=== PATIENT | male | born 1950 | race Caucasian/White ===

== ENCOUNTER 2018-12-22 00:32 | Emergency (ER) | payer OTHER, SELFPAY ==
[2018-12-22 00:36] VITALS: BP 136/77; PULSE 69; RESP 18; TEMP 36.3; O2SAT 98; BMI 29.0
--- NOTE | 2018-12-22 01:42 | ED_ITS ---
HPI - Fall General Chief Complaint: Fall Stated Complaint: fell on ice, thinks he broke rib back/chest pain Time Seen by Provider: 12/22/18 01:42 Source: patient Mode of arrival: ambulatory Limitations: no limitations History of Present Illness HPI Narrative: The patient slipped on his driveway about 1.5 days ago. He has snow in the yard, but black ice in the driveway. He fell backwards landing on his back, shoulders and his head but feels there is no serious injuryto his head. There was no ongoing head zzzpain or LOC. The back is improved also, however he has lower anterior rib pain. He has pain with breathing or motion at the same site. He has no dyspnea. He denies hemoptysis. There is no abdominal pain or nausea vomiting. There is no obvious injury to the anterior chest. Related Data Previous Rx's Medication Instructions Recorded tramadol 50 mg PO Q6H PRN #15 tab 12/22/18 Allergies Allergy/AdvReac Type Severity Reaction Status Date / Time No Known Drug Allergies Allergy Verified 12/22/18 00:41 Review of Systems Review of Systems ROS Unobtainable: All systems reviewed & are unremarkable except as noted in HPI and below Constitutional Denies fever(s), Denies lethargy, Denies weakness and Reports other (No recent illness.) Eyes Denies change in vision ENT Ears, Nose, Mouth, and Throat: Denies neck pain and Reports other (No head or neck pain) Cardiovascular Reports as per HPI, Reports chest pain, Denies irregular heart rhythm, Denies lightheadedness and Denies palpitations Respiratory Denies chest congestion, Denies cough and Denies hemoptysis Gastrointestinal Gastrointestinal: Denies abdominal pain, Denies nausea and Denies vomiting Musculoskeletal Denies back pain, Denies neck pain and Denies numbness Integumentary/Breasts Denies erythema, Denies rash and Denies wounds Neurologic Denies numbness and Denies weakness Endocrine Denies palpitations Exam Initial Vital Signs Initial Vital Signs: Vital Signs Temperature 97.3 F L 12/22/18 00:36 Pulse Rate 69 12/22/18 00:36 Respiratory Rate 18 12/22/18 00:36 Blood Pressure 136/77 12/22/18 00:36 Pulse Oximetry 98 12/22/18 00:36 Const General: cooperative and well developed Nutritional Appearance: well nourished Orientation: alert, awake, oriented x3 and not confused [facility] Head: normocephalic and atraumatic Face and sinus: face symmetric Mouth: oral mucosae normal and moist mucous membranes Throat: posterior oropharynx normal, tonsils normal and uvula midline Eyes General: appearance normal, both eyes and all related structures Eyelids: eyelids normal Conjunctivae: conjunctivae normal Sclera: sclerae normal Pupils: PERRL EOM: EOM intact bilaterally Neck Neck: No tender Chest Other: Focal tenderness along the right side of the lower sternal border. No palpable defects. No crepitus. Resp Effort & Inspection: normal respiratory effort, able to speak in complete sentences, no respiratory distress and no use of accessory muscles Auscultation: clear to auscultation bilaterally, no rales, no rhonchi and no wheezes Cardio Rate: regular rate Rhythm: regular rhythm Heart Sounds: S1 normal, S2 normal, no click, no gallops, no murmurs and no rubs Pulses: normal peripheral pulses GI Inspection: non-distended Palpation: soft, no hepatosplenomegaly, No guarding and No tender Auscultation: normal bowel sounds Skin General: no rashes or lesions noted, No jaundice and No petechiae Neuro General: alert, oriented x3, gait normal and no focal motor deficits Speech: speech normal Extrem General: full ROM and other (No obvious tenderness or injury) PFSH Medical History No chronic problems (Acute) Surgical History No history of previous surgery (Acute) Social History Smoking Status: Never smoker Social History Smoking Status: Never smoker Course Orders Ordered: ED Orders 12/22/18 01:47 XR ribs BI min 4V w CXR1V Stat Discontinued Medications Tramadol HCl (Ultram 50mg Prepack) 1 bottle MISC SEEINSTR ONE Stop: 12/22/18 03:40 Last Admin: 12/22/18 03:50 Dose: 1 bottle Vital Signs - 8 hr 12/22/18 00:36 12/22/18 02:34 12/22/18 03:39 Temperature 97.3 F L Pulse Rate 69 53 L 59 L Respiratory Rate 18 16 Blood Pressure 136/77 Blood Pressure [Left Arm] 119/61 128/65 Pulse Oximetry 98 97 96 MDM - Fall Imaging Data Chest x-ray: My impression: No evidence of rib fracture. Lungs are intact. No obvious trauma. Discharge Plan Departure Patient Disposition: Home Clinical Impression: Sprain of chest wall Qualifiers: Encounter type: initial encounter Qualified Code(s): S23.8XXA - Sprain of other specified parts of thorax, initial encounter Instructions: DI for Rib Contusion Activity Restrictions/Additional Instructions: Increased serum activity as tolerated. Expect discomfort for the next 2-4 weeks. Take Tylenol or Advil as needed for pain. Take Tramadol every 6hr as needed for added pain control. Recheck review doctor in 3-4 weeks if not improving. Return here if obviously worse. Prescriptions: New tramadol 50 mg tablet 50 mg PO Q6H PRN (Reason: pain) Qty: 15 RF: 0 Referrals: Alma Delia Tran PA-C [Primary Care Provider] -
--- NOTE | 2018-12-22 01:47 | DI.RAD.S_ITS ---
PROCEDURE: XR RIBS BI MIN 4V W CXR1V INDICATIONS: Fell onto pavement. TECHNIQUE: 5 views of the bilateral ribs were acquired, to include a single AP view of the chest. COMPARISON: None. FINDINGS: Surgical changes and devices: None. Bones and chest wall: There is cortical irregularity involving the lateral aspect of the left fourth rib. No other fractures identified. Specifically, no rib fracture seen near the BB marker noting area of patient's pain. Alignment is anatomic. No suspicious bony lesions. Overlying soft tissues appear unremarkable. Lungs and pleura: No pleural effusions or pneumothorax. Lungs appear clear. Mediastinum: Mediastinal contours appear normal. Heart size is normal. IMPRESSION: Chest without acute cardiopulmonary abnormalities. Minimal cortical irregularity over the lateral aspect of the left fourth rib which is consistent with an age-indeterminate rib fracture. No fracture is identified over the BB skin marker that is noted near the anterior midsternum. If there is clinical concern for sternal fracture, a dedicated lateral view of the chest may be helpful. Dictated by: Fracisco Rain M.D. on 12/22/2018 at 9:19 Approved by: Fracisco Rain M.D. on 12/22/2018 at 9:28
[2018-12-22 02:34] VITALS: BP 119/61; PULSE 53; O2SAT 97
[2018-12-22 03:39] VITALS: BP 128/65; PULSE 59; RESP 16; O2SAT 96
[2018-12-22] MEDS: TRAMADOL 50 MG PREPACK 1 BOTTLE MISC (03:50)
== END 2018-12-22 03:53 | disposition home or self-care (01) ==
PROVIDERS: Emergency Provider Emergency Medicine; Family Provider Internal Medicine; PCP Internal Medicine
DX: S23.8XXA Sprain of other specified parts of thorax, initial encounter (principal); W01.0XXA Fall on same level from slipping, tripping and stumbling without subsequent striking against object, initial encounter
CPT/HCPCS: 71111; 99283

== ENCOUNTER → 2019-04-10 07:44 | Outpatient (CLI) | payer OTHER, SELFPAY ==
[2019-04-10 09:57] LABS: BUN Creatinine Ratio 16.7 (6-22); Blood Urea Nitrogen 15 mg/dL (9-20); Calcium 9.6 mg/dL (8.4-10.2); Carbon Dioxide 31 mmol/L (22-32); Chloride 99 mmol/L (98-107); Cholesterol 122 mg/dL (140-199); Estimated Glomerular Filt Rate > 60.0 mL/min (>60); Glucose 205 mg/dL (80-110); HDL Cholesterol 29 mg/dL (40-60); HEMOLYSIS < 15 (0-50); LDL Cholesterol Calculated 38 mg/dL (<100); Potassium 4.7 mmol/L (3.4-5.1); Sodium 138 mmol/L (137-145); Triglycerides 276 mg/dL (35-150)
[2019-04-10 10:25] LABS: TSH w/ Reflex to FT4 5.42 uIU/mL (0.47-4.68)
[2019-04-10 10:26] LABS: Prostate Specific Antigen 0.798 ng/mL (0.10-4.00)
[2019-04-10 10:52] LABS: Free T4, Direct Thyroxine 0.88 ng/dL (0.78-2.19)
== END ==
PROVIDERS: PCP Internal Medicine; Visit Provider Internal Medicine
DX: Z00.00 Encounter for general adult medical examination without abnormal findings (principal); E78.2 Mixed hyperlipidemia; R03.0 Elevated blood-pressure reading, without diagnosis of hypertension; N52.9 Male erectile dysfunction, unspecified
CPT/HCPCS: 36415; 80048; 80061; 84153; 84403; 84439; 84443

== ENCOUNTER → 2019-12-08 08:51 | Outpatient (CLI) | payer OTHER, SELFPAY | PROVIDERS: PCP Internal Medicine; Referring Provider Internal Medicine; Visit Provider Internal Medicine | DX: E11.9 Type 2 diabetes mellitus without complications (principal); Z71.3 Dietary counseling and surveillance | CPT/HCPCS: G0108 ==

== ENCOUNTER → 2019-12-18 09:56 | Outpatient (CLI) | payer OTHER, SELFPAY ==
--- NOTE | 2019-12-18 12:03 | DIET.PN ---
Diabetes: Healthy Eating 1 Intervention: ? Discussed pathophysiology of diabetes and impact of nutrition/diet on blood sugar control.? Discussed fed versus non-fed state.?? ? Reviewed importance of Balance, Variety, and Moderation. ? Discussed the effect of carbohydrates/protein/fat on blood sugar control.? ? Stressed importance of consistent carbohydrate intake at each meal and provided instructions for recommended servings/portions of carbohydrates/protein per meal. Provided educational material. ? Reviewed carbohydrate counting and measuring carbohydrate content via serving sizes and reading nutrition labels.? Provided handouts.?? ? Discussed the difference between simple versus complex carbohydrates and the effect of fiber on blood sugar control.? Discussed various methods to increase fiber content in diet. ? Discussed the plate method for creating more carbohydrate conscious balanced meals. ? Stressed importance of meal timing and not going >4-5 hours between meals. Encouraged adding protein to evening snack to support glucose control overnight. ? Discussed importance of making dietary habits part of lifestyle change.
== END ==
PROVIDERS: PCP Internal Medicine; Referring Provider Internal Medicine; Visit Provider Internal Medicine
DX: E11.9 Type 2 diabetes mellitus without complications (principal); Z71.3 Dietary counseling and surveillance
CPT/HCPCS: G0109

== ENCOUNTER → 2020-01-01 09:57 | Outpatient (CLI) | payer OTHER, SELFPAY ==
--- NOTE | 2020-01-01 12:22 | DIET.PN ---
Diabetes Physiology: Intervention 1. Diabetes physiology 2. Detecting and treatment of acute and chronic complications 3. Diagnosis of and difference in types of diabetes 4. Self-monitoring and pattern management a. Demonstrate glucometer and control testing b. Explain BG results and action to take when out of range. 5. Foot , eye, dental care 6. Medications a. Oral medication classification b. Injectable c. Insulin i. Injection protocol ii. Other delivery methods
== END ==
PROVIDERS: PCP Internal Medicine; Referring Provider Internal Medicine; Visit Provider Internal Medicine
DX: E11.9 Type 2 diabetes mellitus without complications (principal); Z71.3 Dietary counseling and surveillance
CPT/HCPCS: G0109

== ENCOUNTER → 2020-04-27 19:15 | Outpatient (ROUT) | payer OTHER, SELFPAY ==
[2020-04-27 19:32] LABS: Aspartate Aminotransferase 28 IU/L (17-59); BUN Creatinine Ratio 21.1 (6-22); Blood Urea Nitrogen 19 mg/dL (9-20); Calcium 9.7 mg/dL (8.4-10.2); Carbon Dioxide 33 mmol/L (22-32); Chloride 101 mmol/L (98-107); Cholesterol 95 mg/dL (140-199); Estimated Glomerular Filt Rate > 60.0 mL/min (>60); Glucose 76 mg/dL (80-110); HDL Cholesterol 44 mg/dL (40-60); HEMOLYSIS < 15 (0-50); LDL Cholesterol Calculated 38 mg/dL (<100); Potassium 4.3 mmol/L (3.4-5.1); Sodium 138 mmol/L (137-145); Triglycerides 65 mg/dL (35-150)
[2020-04-27 19:34] LABS: Hemoglobin A1C% w Est Avg Glu 5.4 % (4.0-6.0)
[2020-04-27 20:03] LABS: Prostate Specific Antigen 0.578 ng/mL (0.10-4.00)
[2020-04-27 20:21] LABS: Vitamin B12 367 pg/mL (239-931)
== END ==
PROVIDERS: PCP Internal Medicine; Visit Provider Internal Medicine
DX: Z00.00 Encounter for general adult medical examination without abnormal findings (principal); E11.9 Type 2 diabetes mellitus without complications; E78.2 Mixed hyperlipidemia
CPT/HCPCS: 80048; 80061; 82607; 83036; 84153; 84450

== ENCOUNTER → 2020-11-29 13:37 | Outpatient (CLI) | payer MEDICARE, SELFPAY ==
[2020-11-29] MEDS: COVID-19 VACC #1, MRNA(MOD) 100 MCG/0.5 ML VIAL IM (13:45)
== END ==
PROVIDERS: PCP Internal Medicine; Visit Provider Internal Medicine
DX: Z23 Encounter for immunization (principal)
CPT/HCPCS: 0011A; 91301

== ENCOUNTER → 2020-12-27 13:28 | Outpatient (CLI) | payer MEDICARE, SELFPAY ==
[2020-12-27] MEDS: COVID-19 VACC #2, MRNA(MOD) 100 MCG/0.5 ML VIAL IM (13:37)
== END ==
PROVIDERS: PCP Internal Medicine; Visit Provider Internal Medicine
DX: Z23 Encounter for immunization (principal)
CPT/HCPCS: 0012A; 91301

== ENCOUNTER → 2021-08-22 08:00 | Outpatient (CLI) | payer MEDICARE, OTHER, SELFPAY ==
--- NOTE | 2021-08-22 | DI.ECHO.S_ITS ---
[place] [facility]---------+ [facility] +---------+ : : [address] : : : : [id number] : : : : Phone: [phone] Echocardiogram Report + + :Name: ALPESH SOLIS Study Date: 08/22/2021 Height: 73 in : :[facility] ReadingLocation: Weight: 195 lb : : Gender: Male BSA: 2.1 m2 : :: 1950 Age: 71 yrs BP: 163/72 mmHg: :Reason For Study: HYPERTENSION : :Ordering Physician: RJ, : :MAX Performed By: Susana Cash : :Referring: MAX DE LA ROSA : + + Interpretation Summary The ejection fraction is estimated to be 50-55%. There is mild mitral regurgitation. The aortic valve is slightly calcified. The calculated aortic valve area is 1.4 cm2. There is mild to moderate aortic stenosis. Procedure: A two-dimensional transthoracic echocardiogram with color flow and Doppler was performed. The study quality was technically adequate. There is no prior echocardiogram noted for this patient. The patient was in sinus bradycardia with heart rates between 50-60 bpm during the exam. Left Ventricle: The left ventricle is normal in size and wall thickness. The ejection fraction is estimated to be 50-55%. Left ventricular wall motion is normal. Right Ventricle: The right ventricle is mildly dilated. The right ventricular systolic function is normal. Atria: The left atrium is severely dilated. The right atrium is mild to moderately dilated. There is no Doppler evidence for an interatrial shunt. Mitral Valve: The mitral valve is normal in structure and function. There is mild mitral regurgitation. Aortic Valve: There is mild aortic valve sclerosis. The aortic valve is slightly calcified. The aortic valve opens well. The peak aortic velocity is 2.26 m/sec. The aortic valve mean gradient is 10 mmHg. The calculated aortic valve area is 1.4 cm2. There is mild to moderate aortic stenosis. No aortic regurgitation is present. Tricuspid Valve: The tricuspid valve is normal in structure and function. There is trace tricuspid regurgitation. Pulmonary artery pressures cannot be estimated because of the lack of a measurable TR jet velocity but the IVC suggests a CVP of around 3 mmHg. Pulmonic Valve: The pulmonic valve is not well seen, but is grossly normal. There is no pulmonic valvular regurgitation. Great Vessels: The aortic root is normal size. The ascending aorta is mildly enlarged. The IVC is of normal diameter and collapses greater than 50% with a sniff. This suggests a low right atrial pressure of 3 mm Hg. Pericardium/ Pleura There is no pericardial effusion. There is no pleural effusion. MMode/2D Measurements & Calculations LVIDd: 5.4 cm LVOT diam: 2.1 cm LVIDs: 3.6 cm Ao root diam: 3.2 cm FS: 34.0 % asc Aorta Diam: 3.5 cm IVSd: 0.80 cm LVPWd: 0.85 cm LV edwards. diameter/BSA (cm/m^2): 2.6 LV sys. diameter/BSA (cm/m^2): 1.7 LA A2 area: 28.0 cm2 RA long axis: 6.0 cm LA A4 area: 25.4 cm2 RA area: 24.5 cm2 LA length (vol): 5.8 cm RA vol: 85.7 ml LA vol: 103.7 ml RA : 40.2 ml/m2 LA vol index: 48.7 ml/m2 IVC diam: 2.0 cm RVD1 (basal): 4.2 cm TAPSE: 3.0 cm Doppler Measurements & Calculations Ao V2 max: 226.3 cm/sec LVOT Max Ever: 94.4 cm/sec Ao V2 mean: 148.1 cm/sec LV V1 max P.6 mmHg Ao max P.5 mmHg LV V1 VTI: 26.8 cm Ao mean P.1 mmHg LAMINE(I,D): 1.6 cm2 Ao V2 VTI: 56.6 cm LAMINE(V,D): 1.4 cm2 sev ratio: 0.47 LAMINE indexed to BSA (cm^2/m^2): 0.74 MV E max ever: 113.4 cm/sec PA V2 max: 135.4 cm/sec MV A max ever: 106.2 cm/sec PA V2 mean: 94.6 cm/sec MV E/A: 1.1 PA mean P.0 mmHg Med Peak E' Ever: 6.3 cm/sec PA pr(Accel): 24.2 mmHg E/E' med: 18.0 Lat Peak E' Ever: 6.5 cm/sec E/E' lat: 17.4 E/e' average: 17.7 MV dec time: 0.26 sec SV(LVOT): 89.1 ml Reading Physician:11:03 AM
== END ==
PROVIDERS: PCP Internal Medicine; Referring Provider Internal Medicine; Visit Provider Internal Medicine
DX: I08.0 Rheumatic disorders of both mitral and aortic valves (principal); R01.1 Cardiac murmur, unspecified; I10 Essential (primary) hypertension
CPT/HCPCS: 93306

== ENCOUNTER 2024-10-26 09:53 | Emergency (ER) | payer MEDICARE, OTHER, SELFPAY ==
[2024-10-26] VITALS (20 sets, daily range): BP systolic 134–194; BP diastolic 65–104; PULSE 43–85; RESP 16–19; TEMP 36.9; O2SAT 93–99
--- NOTE | 2024-10-26 10:13 | PC.NURSE ---
Pt is ambulatory to room. Reports that pain is mainly to upper back and left shoulder where he landed. Has abrasions to right forearm.
--- NOTE | 2024-10-26 10:18 | ED.BACK ---
HPI - Back Pain/Injury General Chief Complaint: Back Pain/Injury Stated Complaint: Fell 5 days ago , neck pain , back pain Time Seen by Provider: 10/26/24 10:18 Source: patient History of Present Illness HPI Narrative: 74-year-old male with history of ankylosing spondylitis, takes no medication for this, some limitation at baseline of upward gaze due to the spondylitis, was walking carrying a box 4 days ago, fell forward, has had left upper shoulder and upper back area discomfort since that time. He seemed to have some concern about possible rib fracture. Some concern about possible neck fracture. No numbness or weakness to face arm or leg. He has not believe he hit his head, no nausea or vomiting, does not take blood thinner medications. No lower extremity injuries. Denies injuries to his chest abdomen and pelvis. Related Data Home Medications Medication Instructions Recorded Confirmed losartan 25 mg tablet 25 mg PO DAILY 09/03/22 03/14/23 metformin 500 mg tablet 500 mg PO DAILY 09/03/22 03/14/23 rosuvastatin 20 mg tablet 20 mg PO DAILY 09/03/22 03/14/23 aspirin 81 mg tablet 81 mg PO DAILY 03/14/23 03/14/23 Previous Rx's Medication Instructions Recorded methocarbamol 500 mg tablet 500 mg PO TID 7 days #21 tabs 10/26/24 Allergies Allergy/AdvReac Type Severity Reaction Status Date / Time lisinopril AdvReac Unknown Abdominal Verified 09/03/22 11:42 Pain Patient History Medical History (Updated 10/26/24 @ 13:08 by Pito Rendon MD) Ankylosing spondylitis Diabetes HLD (hyperlipidemia) HTN (hypertension) No chronic problems Surgical History (Updated 09/03/22 @ 11:44 by Noe Jeronimo MD) No history of previous surgery Family History (Updated 09/03/22 @ 12:04 by Noe Jeronimo MD) Father Lung cancer Throat cancer Mother Cirrhosis Social History Smoking Status: Never smoker substance use type: does not use eating out: rarely or never Type(s) of exercise: normal ROM and activity Smoking Status: Never smoker alcohol intake frequency: 3 or more drinks per day Exam Narrative Exam Narrative: GENERAL: Well-developed patient, in mild distress. HEAD: Atraumatic. Normocephalic. EYES: Pupils equal round and reactive. Extraocular motions intact. No scleral icterus. No injection or drainage. ENT: Nose without bleeding, purulent drainage. Throat without erythema, tonsillar hypertrophy or exudate. Airway patent. NECK: Trachea midline. Non tender. Some limitation upper gaze and with lateral rotation, however he does have history of ankylosing spondylitis and baseline limited mobility of the neck CARDIOVASCULAR: Regular rate and rhythm without murmurs, gallops, or rubs. RESPIRATORY: Clear to auscultation. Breath sounds equal bilaterally. No wheezes, rales, or rhonchi. GASTROINTESTINAL: Abdomen soft, non-tender, nondistended. EXTREMITIES: No gross deformities to the upper extremities. Small right forearm abrasion without gross deformity, dressed by nursing. BACK: Nontender without deformity or crepitance. No flank tenderness. Some tenderness to the left superior rhomboid musculature, also the trapezius. No skin changes rash or abrasions. NEURO: AOx3. Motor functions grossly nonfocal SKIN: No rash or erythema of visible areas Initial Vital Signs Initial Vital Signs: Vital Signs Pulse Oximetry 97 10/26/24 09:58 Course Orders Ordered: ED Orders 10/26/24 12:01 CT cervical spine wo con Stat 10/26/24 12:59 Chest [XR chest 2V] Stat Discontinued Medications Diphtheria/Tetanus/Acell Pertussis (Tet,Diph,Pertuss(Acell),Vac/Pf 0.5 Ml Syringe) 0.5 ml IM .ONCE ONE Stop: 10/26/24 14:57 Last Admin: 10/26/24 15:12 Dose: 0.5 ml Documented By: Methocarbamol (Methocarbamol 500 Mg Tablet) 500 mg PO NOW ONE Stop: 10/26/24 13:01 Last Admin: 10/26/24 13:09 Dose: 500 mg Documented By: Vital Signs Vital signs: Vital Signs - 8 hr 10/26/24 11:30 10/26/24 11:31 10/26/24 11:31 Temperature Pulse Rate 43 L 47 L Respiratory Rate Blood Pressure 180/75 H Pulse Oximetry 97 98 Oxygen Delivery Method 10/26/24 12:00 10/26/24 12:09 10/26/24 12:09 Temperature Pulse Rate 44 L 47 L Respiratory Rate Blood Pressure 176/104 H Pulse Oximetry 97 97 Oxygen Delivery Method 10/26/24 12:30 10/26/24 12:31 10/26/24 12:31 Temperature Pulse Rate 43 L 44 L Respiratory Rate Blood Pressure 189/81 H Pulse Oximetry 97 98 Oxygen Delivery Method 10/26/24 13:00 10/26/24 13:01 10/26/24 13:01 Temperature Pulse Rate 48 L Respiratory Rate Blood Pressure 145/65 H Pulse Oximetry 93 93 Oxygen Delivery Method 10/26/24 13:30 10/26/24 14:00 10/26/24 14:30 Temperature Pulse Rate 46 L 48 L 47 L Respiratory Rate 18 Blood Pressure 165/78 H Pulse Oximetry 98 96 96 Oxygen Delivery Method Room Air 10/26/24 15:00 10/26/24 15:21 Temperature 98.4 F Pulse Rate 44 L 85 Respiratory Rate 16 Blood Pressure 134/78 Pulse Oximetry 95 99 Oxygen Delivery Method Room Air MDM - Back Pain/Injury Imaging Data CT - cervical spine: Radiologist's Impression: [address] [address] [address] Scan Report Signed Patient: Danie Varela MR#: [id number] : 1950 Acct:[id number] Age/Sex: 74 / M Date of Service: 10/26/24 Loc: ED Accession Number: [id number] Procedure: CT cervical spine wo con Ordering Provider: Pito Rendon MD PROCEDURE: CT CERVICAL SPINE WO CON INDICATIONS: neck pain, fall, upper neck TECHNIQUE: Noncontrast 3 mm thick sections acquired from the skull base to the T4 level. Sagittal and coronal reformats were then constructed. For radiation dose reduction, the following was used: automated exposure control, adjustment of mA and/or kV according to patient size. COMPARISON: [facility], CR, XR CERVICAL SPINE WITH OBLIQUES, 10/19/2022, 13:41. [facility], MR, MR CERVICAL SPINE WITHOUT CONTRAST, 04/09/2023, 14:45. FINDINGS: Image quality: Excellent. Bones: There is straightening of normal cervical lordosis. No fractures or dislocations. No gross bony erosive changes. Loss of disc height, degenerative endplate changes and dorsal disc osteophyte complex formation at C4-5 to C6-7 levels are seen causing [id number] central canal stenosis and left worse than right bilateral neural foraminal narrowing at C4-5 through C6-7 levels. Visualized superior ribs are intact. Soft tissues: Prevertebral soft tissues are normal in thickness. No paravertebral hematomas. No apical pneumothoraces. IMPRESSION: 1. No cervical spine fracture or dislocation. 2. Degenerative disc disease throughout cervical spine more notably involving C4-5 through C6-7 levels as above. 3. No gross bony erosive changes. No paraspinous soft tissue abnormalities. Dictated by: Brandon Keys M.D. on 10/26/2024 at 12:49 Approved by: Brandon Keys M.D. on 10/26/2024 at 12:51 Chest x-ray: Radiologist's Impression: [address] [address] XRay Report Signed Patient: Danie Varela MR#: [id number] : 1950 Acct:[id number] Age/Sex: 74 / M Date of Service: 10/26/24 Loc: ED Accession Number: [id number] Procedure: XR chest 2V Ordering Provider: Pito Rendon MD PROCEDURE: XR CHEST 2V INDICATIONS: fall. concern about rib fracture TECHNIQUE: 2 views of the chest were acquired. COMPARISON: None. FINDINGS: Surgical changes and devices: None. Lungs and pleura: Lungs are clear. No pleural effusions or pneumothorax. Mediastinum: Mediastinal contours are normal. Heart size is normal. Bones and chest wall: No suspicious bony abnormalities. Soft tissues appear unremarkable. IMPRESSION: No acute cardiopulmonary pathology. No obvious displaced rib fracture. Dictated by: Brandon Keys M.D. on 10/26/2024 at 13:41 Approved by: Brandon Keys M.D. on 10/26/2024 at 13:42 [facility] Narrative Medical decision making narrative: 74-year-old male with history of ankylosing spondylitis, limited neck rotation flexion as baseline, ground level mechanical fall a few days ago, upper back area discomfort, concerned about rib fracture, concerned about neck injury. Motor function unremarkable. CT cervical spine ordered. Chest x-ray ordered. On examination he seemed to have more tenderness to the superior trapezius and along the superior rhomboid, clinically suspect muscle strain only, no significant tenderness to midline spine cervical or thoracic. However patient prefers imaging above. Oral Robaxin trial while awaiting study results. Declined ibuprofen/Tylenol for now. CT cervical spine showed arthritic changes, see radiology report. Chest x-ray no acute changes, no rib fractures, no lung parenchyma abnormalities, T-spine without gross abnormalities, see radiology report. Patient symptomatically improved, discharged home with further muscle relaxant Robaxin. Discharged home with family. Return precautions discussed. Discharge Plan Departure Patient Disposition: Home Clinical Impression: Fall from ground level, Rhomboid muscle strain, Strain of trapezius muscle, History of ankylosing spondylitis Activity Restrictions/Additional Instructions: History of ankylosing spondylitis, mechanical fall few days ago, baseline neck immobility due to the spondylitis, upper back discomfort, concern about possible rib fractures, not confirmed on chest radiograph, that also had some imaging of the thoracic spine. CT cervical spine study showed arthritic changes but no acute fracture or acute injury patterns. Muscle spasm along the superior left rhomboid and trapezius musculature, likely strains in those areas from the fall. Trial of Robaxin/methocarbamol muscle relaxant, prescription sent to your pharmacy, oral dose given in the emergency department. Consider also taking Tylenol and or Motrin as needed for discomfort. Recheck symptoms with your regular doctor in the next few days if not improving. Return to this/nearest emergency department for any change worsening symptoms or any concerns prior Prescriptions: New methocarbamol 500 mg tablet 500 mg PO TID 7 Days Qty: 21 0RF No Action metformin 500 mg Tablet 500 mg PO DAILY losartan 25 mg Tablet 25 mg PO DAILY rosuvastatin 20 mg Tablet 20 mg PO DAILY aspirin 81 mg Tablet 81 mg PO DAILY Referrals: Jason Bustamante MD [Primary Care Provider] - Stand Alone Forms: Patient Portal/API/Survey
--- NOTE | 2024-10-26 10:34 | PC.NURSE ---
Cleaned abrasions to right forearm with soap and water. Pt tolerated fair. Non-adherent dressing applied to wound.
--- NOTE | 2024-10-26 12:01 | DI.CT.S_ITS ---
PROCEDURE: CT CERVICAL SPINE WO CON INDICATIONS: neck pain, fall, upper neck TECHNIQUE: Noncontrast 3 mm thick sections acquired from the skull base to the T4 level. Sagittal and coronal reformats were then constructed. For radiation dose reduction, the following was used: automated exposure control, adjustment of mA and/or kV according to patient size. COMPARISON: [facility], CR, XR CERVICAL SPINE WITH OBLIQUES, 10/19/2022, 13:41. [facility], MR, MR CERVICAL SPINE WITHOUT CONTRAST, 04/09/2023, 14:45. FINDINGS: Image quality: Excellent. Bones: There is straightening of normal cervical lordosis. No fractures or dislocations. No gross bony erosive changes. Loss of disc height, degenerative endplate changes and dorsal disc osteophyte complex formation at C4-5 to C6-7 levels are seen causing [id number] central canal stenosis and left worse than right bilateral neural foraminal narrowing at C4-5 through C6-7 levels. Visualized superior ribs are intact. Soft tissues: Prevertebral soft tissues are normal in thickness. No paravertebral hematomas. No apical pneumothoraces. IMPRESSION: 1. No cervical spine fracture or dislocation. 2. Degenerative disc disease throughout cervical spine more notably involving C4-5 through C6-7 levels as above. 3. No gross bony erosive changes. No paraspinous soft tissue abnormalities. Dictated by: Brandon Keys M.D. on 10/26/2024 at 12:49 Approved by: Brandon Keys M.D. on 10/26/2024 at 12:51
--- NOTE | 2024-10-26 12:59 | DI.RAD.S_ITS ---
PROCEDURE: XR CHEST 2V INDICATIONS: fall. concern about rib fracture TECHNIQUE: 2 views of the chest were acquired. COMPARISON: None. FINDINGS: Surgical changes and devices: None. Lungs and pleura: Lungs are clear. No pleural effusions or pneumothorax. Mediastinum: Mediastinal contours are normal. Heart size is normal. Bones and chest wall: No suspicious bony abnormalities. Soft tissues appear unremarkable. IMPRESSION: No acute cardiopulmonary pathology. No obvious displaced rib fracture. Dictated by: Brandon Keys M.D. on 10/26/2024 at 13:41 Approved by: Brandon Keys M.D. on 10/26/2024 at 13:42
[2024-10-26] MEDS: methocarbamoL 500 MG TABLET PO (13:09)
--- NOTE | 2024-10-26 14:40 | PC.NURSE ---
Pt states that pain is feeling better. wants tetanus shot. Dr Rendon notified.
[2024-10-26] MEDS: TET,DIPH,PERTUSS(ACELL),VAC/PF 0.5 ML SYRINGE IM (15:12)
== END 2024-10-26 15:22 | disposition home or self-care (01) ==
PROVIDERS: Emergency Provider Emergency Medicine; PCP Internal Medicine
DX: S29.012A Strain of muscle and tendon of back wall of thorax, initial encounter (principal); S46.912A Strain of unspecified muscle, fascia and tendon at shoulder and upper arm level, left arm, initial encounter; W18.30XA Fall on same level, unspecified, initial encounter; M45.9 Ankylosing spondylitis of unspecified sites in spine; Z23 Encounter for immunization; M54.2 Cervicalgia
CPT/HCPCS: 71046; 72125; 90471; 99283; 99284; 90715

== ENCOUNTER → 2025-05-03 09:08 | Outpatient (CLI) | payer MEDICARE, OTHER, SELFPAY ==
--- NOTE | 2025-05-03 09:09 | DI.MRI.S_ITS ---
PROCEDURE: MR PELIS WO/W CON INDICATIONS: ARTHRITIS CAUSING PAIN TECHNIQUE: Noncontrast coronal T1 spin echo and STIR, sagittal T1 spin echo with fat saturation and STIR, axial T1 spin echo and T2 fast spin echo with fat saturation. After the administration of contrast, axial/sagittal/coronal T1 spin echo with fat saturation through the pelvis. COMPARISON: None. FINDINGS: Image quality: Excellent. Bones: Extensive heterogeneous marrow signal without discrete enhancing lesion in the visualized lower lumbar spine, the pelvic bones, and bilateral proximal femur, nonspecific. The sacrum is intact. There is partial ankylosis of bilateral sacroiliac joint, consistent with patient's history ankylosing spondylitis. No associated marrow edema or erosion of either sacroiliac joint. Mild degenerative changes of bilateral hips. No acute fracture or dislocation in the pelvis and either hips. Soft tissues: The right iliopsoas, adductor, hamstring, gluteal minimus and medius tendon are grossly unremarkable. The left iliopsoas, adductor, hamstring, gluteal minimus and medius tendon unremarkable. Mild enlargement of prostate. IMPRESSION: 1. Extensive heterogeneous marrow signal, nonspecific. Recommend correlation with CBC. 2. Partial ankylosis of bilateral sacroiliac joints, representing sequela of prior sacroiliitis, consistent with patient's history of ankylosing spondylitis. No active sacroiliitis. 3. Mild degenerative changes of bilateral hips. Dictated by: Stefany Juarez M.D. on 05/04/2025 at 10:15 Approved by: Stefany Juarez M.D. on 05/04/2025 at 10:23
== END ==
LOC: MRI 09:08
PROVIDERS: PCP Internal Medicine; Referring Provider Internal Medicine Rheumatology; Visit Provider Internal Medicine Rheumatology
DX: M45.0 Ankylosing spondylitis of multiple sites in spine (principal)
CPT/HCPCS: 72197; A9579

== ENCOUNTER → 2025-08-05 15:34 | Outpatient (CLI) | payer MEDICARE, OTHER, SELFPAY ==
--- NOTE | 2025-08-05 15:36 | DI.MRI.S_ITS ---
PROCEDURE: MR SHOULDER LT WO CON INDICATIONS: pain TECHNIQUE: Noncontrast oblique coronal T2 fast spin echo with fat saturation, oblique sagittal T1 spin echo and T2 fast spin echo with fat saturation, axial T1 spin echo and T2 fast spin echo with fat saturation through the shoulder. COMPARISON: [facility], MR, SHOULDER WITHOUT CONTRAST, 03/23/2015, 19:05. FINDINGS: Quality: Adequate. Tendons: Rotator cuff tendons: Full-thickness nearly full width supraspinatus tendon tear at the insertion with approximately 9 millimeters of retraction. High-grade partial thickness insertional interstitial tear of the anterior infraspinatus tendon. Teres minor tendon is normal. Mild subscapularis tendinopathy. Long head of biceps tendon: Intact. No dislocation. Muscles: No disproportionate fatty degeneration of the rotator cuff musculature. Acromioclavicular joint: Moderate degenerative arthritis with chronic fracture deformity of the distal clavicle. Glenohumeral joint: Labrum: Unremarkable. Cartilage: No focal defect. Glenoid and humeral head marginal osteophytes. Fluid: No effusion. Capsule: No pericapsular inflammation or scarring. Alignment: No dislocation. Bursa: Subacromial/subdeltoid bursa: Nondistended. Subcoracoid bursa: Nondistended. Bones: No acute fracture. IMPRESSION: Full-thickness near full width supraspinatus tendon tear. High-grade partial-thickness interstitial infraspinatus tendon tear. Acromioclavicular and glenohumeral osteoarthritis. Dictated by: Hola Ayala M.D. on 08/09/2025 at 15:22 Approved by: Hola Ayala M.D. on 08/09/2025 at 15:26
== END ==
LOC: MRI 15:35
PROVIDERS: PCP Physician Assistant; Referring Provider Physician Assistant; Visit Provider Physician Assistant
DX: S46.012A Strain of muscle(s) and tendon(s) of the rotator cuff of left shoulder, initial encounter (principal); S49.92XA Unspecified injury of left shoulder and upper arm, initial encounter; M25.512 Pain in left shoulder; G89.29 Other chronic pain; M19.012 Primary osteoarthritis, left shoulder; S42.032S Displaced fracture of lateral end of left clavicle, sequela; X58.XXXA Exposure to other specified factors, initial encounter
CPT/HCPCS: 73221

== ENCOUNTER → 2025-10-11 08:50 | Outpatient (CLI) | payer MEDICARE, OTHER, SELFPAY ==
--- NOTE | 2025-10-11 09:07 | EKG_ITS ---
[facility] [address], [place] [address] Test Date: 2025-10-11 Pat Name: Danie Varela Department: [facility] Room: Gender: Male Boom Man: AJAY : 1950 Requested By: Order Number: [id number] Reading MD: Orlando Guardado MD Measurements Intervals [place] Rate: 47 P: 7 VT: 156 QRS: 51 QRSD: 86 T: 58 QT: 446 QTc: 394 Interpretive Statements Sinus bradycardia Electronically Signed On 10-11-2025 11:24:25 PST by Orlando Guardado MD
== END ==
LOC: RESP 08:53
PROVIDERS: PCP Physician Assistant; Referring Provider Physician Assistant; Visit Provider Orthopaedic Surgery
DX: Z01.818 Encounter for other preprocedural examination (principal)
CPT/HCPCS: 93005; 93010

== ENCOUNTER 2025-10-19 08:07 | Day surgery (SDC) | payer MEDICARE, OTHER, SELFPAY ==
[2025-10-14 12:33] VITALS: BMI 26.7
[2025-10-19] VITALS (8 sets, daily range): BP systolic 130–174; BP diastolic 63–76; PULSE 55–72; RESP 14–19; TEMP 36.2–36.4; O2SAT 94–100
[2025-10-19] MEDS: ACETAMINOPHEN 325 MG TABLET 975 MG PO (08:57)
[2025-10-19] MEDS: LACTATED RINGERS 1,000 ML 42 ML IV ×2 (08:57→12:01)
[2025-10-19] MEDS: PREGABALIN 75 MG CAPSULE PO (08:57)
[2025-10-19] MEDS: FAMOTIDINE 20 MG/2 ML VIAL IV (08:57)
--- NOTE | 2025-10-19 08:57 | PM.PREOP ---
Pre-operative Note Interval Note History & Physical reviewed/Exam performed by Physician: Yes Changes to H&P: No
--- NOTE | 2025-10-19 09:27 | SUR.PREOP ---
Block start time [0912] . Monitoring initiated and maintained throughout procedure. Oxygen and medications given per anesthesiologist/anesthesiologist's instructions. Patient remained stable throughout procedure, no adverse reactions noted. Block end time [20].
--- NOTE | 2025-10-19 10:19 | SUR.OPER ---
Beach chair with Schlein shoulder positioner. Lower body on padded OR bed. Head in foam padded head cradle, secured with straps. Non-operative arm secured <90 degrees abduction. Pillow under knees. Safety belt at thigh. Cloth tape over blanket over lower legs. Silk tape over blanket across chest.
[2025-10-19] MEDS: SODIUM CHLORIDE IRRIG SOLUTION 3,000 ML, EPINEPHrine 3 MG IRR ×3 (10:36→11:06)
--- NOTE | 2025-10-19 12:13 | PM.OP.1 ---
Operative Date/Time/Diagnoses Date of procedure: 10/19/25 Time of procedure: 09:00 Pre-op diagnosis: Left shoulder rotator cuff tear and possible SLAP tear Post-op diagnosis: same Procedure & Clinicians Procedure: Left shoulder arthroscopy, rotator cuff repair, open proximal biceps tenodesis and labral debridement Same procedure(s) as scheduled: Yes Surgeon: Regan Tena Assisted?: Yes Resident Care Manager Rn: Gia Kumar Anesthesia Type: General Operative Notes Findings: Full-thickness rotator cuff tear, slap tear, degenerative changes of the labrum. Closure Type: primary Specimen(s): none sent Applied: none Estimated Blood Loss (mL): 20 Blood products transfused: none Procedure in detail: Patient Name: ALPESH SOLIS Date of Operation: 10/19/25 Preoperative diagnosis: LEFT Shoulder Rotator Cuff Tear and SLAP tear Procedure performed: LEFT Shoulder Diagnostic Arthroscopy, Rotator Cuff Repair, Open Biceps Tenodesis and labral debridement Postoperative diagnosis: LEFT shoulder rotator cuff tear, slap tear and degenerative labral tears Primary Surgeon: Regan Tena MD Secondary Surgeon: SIMONA Baker Physician Resident Care Manager Rn was used throughout the entirety of the case. They assisted with room set up, patient positioning, draping, retraction, reduction, fixation and closure. They were essential for the success of the case. Anesthesia: General EBL: 20 ml Implants: Arthrex Knotless 2.6 Fiber Dorian x1 as a medial row The above pulled out so we had to place a Titanium SwivelLock Arthrex Proximal Biceps Tenodesis Button Indication for Surgery: Nonoperative management failed to resolve symptoms. The risks, benefits, and alternatives were discussed. Risks included pain, bleeding, infection, damage to nearby structures, lack of symptom relief, implant complications, stiffness, need for further surgeries, DVT, PE, stroke, and even . They signed a written consent form. Examination Under Anesthesia: ROM: Forward flexion 170, abduction 170 Anterior load and shift: Grade 1 Posterior load and shift: Grade 1 Inferior sulcus: Grade 1 Diagnostic Findings: Rotator interval: Normal Biceps tendon & SLAP: Degenerative changes of the biceps tendon. Peel back of the posterior SLAP Subscapularis: Intact Rotator Cuff: Unable to visualize full-thickness tear from inside the joint, however full-thickness tear was identified from the subacromial space. HAGL: No HAGL Labrum: Degenerative changes through the anterior and posterior portions Glenoid Cartilage: Grade 2 and grade 3 chondromalacia Humeral Head Cartilage: Grade 2 and grade 3 chondromalacia Procedure in Detail: The patient was met in the preoperative holding on the day of the procedure. Operative extremity was signed. Consent was verified. The patient desired to proceed. Regional anesthesia was obtained in the preoperative area. They were brought to the operating room and surrendered to anesthesia. Once general anesthesia was obtained they were placed in the beach chair position. All bony prominences were well-padded. They were then prepped and draped in the standard sterile fashion. A surgical timeout was held to confirm the patient procedure, identity, laterality, allergies, images, and antibiotics. All were in agreement and we proceeded. A standard diagnostic arthroscopy was performed utilizing posterior and anterior superior portal sites. The anterior superior portal site was created under direct visualization. The findings of the diagnostic arthroscopy can be found above. Biceps tendon was cut using arthroscopic scissors and debrided back with a sucker shaver. Mini-Open Subpectoral Biceps Tenodesis: We then turned our attention to the biceps tenodesis, a 4 cm longitudinal incision was made near the axillary fold centered over the inferior border of the pectoralis major tendon. Electrocautery was used to obtain hemostasis. The fascia was opened with dissection scissors in line with the course of the neurovascular structures. Blunt digital dissection was used to identify the intertubercular groove just under the pectoralis major tendon. The long head of the biceps tendon was visualized within this interval. The short head of the biceps was retracted with my finger and the right angle was used to deliver the tendon of the long head of the biceps out of the wound. The groove was then prepared with a kennedy elevator. The drill for the biceps button was placed at the inferior edge of the pec major tendon within the groove. The drill was then removed and the button placed. The tendon was then reduced down on to the surface of the humerus. A free needle was used to place a throw through the biceps tendon and this was tied. The suture limbs were cut and the wound was irrigated. The subcutaneous tissue was closed using interrupted 2-0 Vicryl followed by running 3-0 Monocryl in subcuticular fashion. Subacromial Decompression: The obturator was placed into the subacromial space along the underside of the acromion from the posterior portal passing lateral to the coracoacromial ligament and out the anterior incision. The crystal cannula was threaded over this and the serfas wand was placed into the cannula. The camera was inserted and the cannula was backed out until the camera and instruments were in the subacromial space. The serfas wand was used to excise tissue from the underside of the acromion and establish a small space for viewing. The leading edge of the CA ligament was released. A lateral incision was made after localization with a spinal needle. The shaver was inserted and the bursa was excised completely, taking care to excise all bursa from the anterior and lateral gutters. The rotator cuff was protected throughout. The rotator cuff was found to have a full thickness tear and would require a repair. The shaver was then used to fifi the underside of the acromion of all portions that were downsloping or not smooth. The shoulder was taken through a range of motion and the bursa was found to be fully excised. Rotator Cuff Repair: The rotator cuff tear was identified from the subacromial space. It was decided that this would require a single Knotless 2.6 Fiber Taks just lateral to the chondral edge. A Arthrex passport was placed into our lateral portal. An additional portal was created as a viewing portal. The tendon was tested and it was mobile and could be reduced to the original footprint. The frayed edges of the rotator cuff were debrided back. The new footprint was debrided of soft tissue. A spinal needle was placed vertically just lateral to the acromion to determine the trajectory of the implants. We utilized two implants that were placed just lateral to the humeral head cartilage in the old rotator cuff foot print. The suture limbs were left out of the percutaneous portal. One of the repair stitches was grabbed through the passport. The scorpion was loaded and the suture was passed through the anterior portion of the rotator cuff tendon. The free end was then passed out anteriorly to keep it out of the way. The second repair stitch was brought through the passport, scorpion loaded and passed through the rotator cuff tendon slightly posterior to the first pass. All four limbs of the anterior implant were then passed through the passport. The shuttling suture was loaded and the repair sutures were passed through the implant. They were sequentially secured down however the implant pulled out. We still maintained our sutures through the rotator cuff and so it was decided that we would back this up with a SwiveLock. The SwiveLock was placed slightly more lateral and anterior to the original implant. This brought the tendon down nicely into the footprint. The shoulder was taken through a range of motion which demonstrated a fully repair rotator cuff which moved continuously with the movement of the shoulder. Final images were obtained and the instruments were removed from the shoulder. The incisions were closed with 3-0 Nylon, sterile dressing and sling were applied. Postoperative Plan: Same day discharge Sling use for 6 weeks Physical Therapy consult placed Follow up with ortho in 2 weeks for suture removal and clinical examination Regan Tena MD Complications: none Post-operative Condition: stable Disposition: PACU
== END 2025-10-19 13:39 | disposition home or self-care (01) ==
PROVIDERS: PCP Physician Assistant; Referring Provider Physician Assistant; Visit Provider Orthopaedic Surgery
PROC: (CPT 29827; principal; 2025-10-19 09:45)
DX: M75.122 Complete rotator cuff tear or rupture of left shoulder, not specified as traumatic (principal); M75.22 Bicipital tendinitis, left shoulder; S43.432A Superior glenoid labrum lesion of left shoulder, initial encounter; G89.18 Other acute postprocedural pain; M94.212 Chondromalacia, left shoulder; M19.012 Primary osteoarthritis, left shoulder; I10 Essential (primary) hypertension; E78.5 Hyperlipidemia, unspecified; E11.9 Type 2 diabetes mellitus without complications; Z79.84 Long term (current) use of oral hypoglycemic drugs
CPT/HCPCS: 23430; 29827; 64450; 82962; C1713; J0165; J0689; J1100; J2405; J2704; J3010; J3490; J7120